=== PATIENT | male | born 1975 | race African-American/Black ===

== ENCOUNTER 2016-05-17 03:59 | Emergency (ER) | payer MEDICAID ==
[~2016-05-17] VITALS: Ht 182.9 cm; Wt 90.7 kg
[~2016-05-17 03:59] MED LIST: AUGMENTIN 875-1 EAC1 ORAL; OFLOXACIN5 ML LEFT EYE
[2016-05-17] MEDS ORDERED: NKM (04:04)
[2016-05-17 04:09] VITALS: BP 114/79
[2016-05-17] MEDS ORDERED: DuoNeb 0.5-3(2.5)mg/3ml neb HHN ONE (04:15)
--- NOTE | 2016-05-17 04:16 | Emergency Room Report ---
History of Present Illness General Chief Complaint: Upper Respiratory Illness Source: Patient Present Illness HPI Patient is a 42-year-old male presented after increased cough and difficulty breathing. Patient reported having prior history of cough for 1 months. He reported taking [id number] medications without relief. He states that he had prior history of smoking. He denied any vomiting or diarrhea. He reports having sick contacts at home. Allergies: Coded Allergies: No Known Allergies (Unverified , 08/16/14) Patient History Past Medical History: see triage record Reviewed Nursing Documentation: PMH: Agreed, PSxH: Agreed Nursing Documentation-PMH Past Medical History: No Stated History Review of Systems All Other Systems: negative except mentioned in HPI Physical Exam Vital Signs Date Time Temp Pulse Resp B/P Pulse Ox O2 Delivery O2 Flow Rate FiO2 05/17/16 04:00 98.2 60 16 114/79 96 Room Air General Appearance: well appearing, no apparent distress, alert, GCS 15 Head: normocephalic, atraumatic ENT: hearing grossly normal, normal voice Neck: full range of motion, supple Respiratory: no respiratory distress, speaking full sentences, wheezing Cardiovascular #1: normal peripheral pulses, regular rate, rhythm Gastrointestinal: normal bowel sounds, non tender, no mass Musculoskeletal: normal inspection, digits/nails normal, no calf tenderness Neurologic: normal inspection, alert, oriented x3, responsive, normal gait Psychiatric: mood/affect normal Skin: no rash Medical Decision Making Diagnostic Impression: Primary Impression: Bronchitis ER Course Patient presented for cough.Differential diagnosis included but was not limited to bronchitis, pneumonia, pulmonary embolism, pericarditis, asthma, foreign body. Patient's benign exam and does not appear to require any further imaging or laboratory testing at this time. The patient was given a breathing treatment with albuterol and Atrovent. The patient is advised to follow up with primary care doctor in 1-2 days. Patient is advised to return if any worsening condition or if any changes in status that are concerning. Last Vital Signs Date Time Temp Pulse Resp B/P Pulse Ox O2 Delivery O2 Flow Rate FiO2 05/17/16 04:09 60 16 Room Air 05/17/16 04:09 98.2 114/79 96 Status: improved Disposition: HOME, SELF-CARE Condition: Stable Scripts Albuterol Sulfate* (ALBUTEROL SULFATE MDI*) 8.5 Gm Hfa.aer.ad 2 PUFF INH Q4H Y for cough/wheezing, #1 EA 0 Refills Prov: Warner Delgado 05/17/16 Warner Delgado May 17, 2016 04:16
[2016-05-17] MEDS ORDERED: ALBUTEROL SULF8.5 GM INH (04:25)
[2016-05-17 04:34] VITALS: BP 114/79
== END 2016-05-17 04:34 | disposition home or self-care (01) ==
LOC: EDBD 03:59 → EMR 04:27
DX: J40 Bronchitis, not specified as acute or chronic (principal)
CPT/HCPCS: 94640; 94664; 99283; J7620

== ENCOUNTER 2016-08-31 12:29 | Emergency (ER) | payer MEDICAID ==
[~2016-08-31] VITALS: Ht 182.9 cm; Wt 90.7 kg
[~2016-08-31 12:29] MED LIST changes: +ALBUTEROL SULF8.5 GM INH; +NKM
[2016-08-31 13:19] LABS: APPEARANCE,URINE CLEAR; KETONES,URINE 1+ (NEGATIVE); LEUKOCYTE ESTERASE ,URINE 2+ (NEGATIVE); NITRITE,URINE NEGATIVE (NEGATIVE); PH,URINE 6 (4.5-8.0); PROTEIN,URINE NEGATIVE (NEGATIVE); UROBILINOGEN,URINE 4 MG/DL (0.0-1.0)
[2016-08-31 13:25] VITALS: BP 108/55
--- NOTE | 2016-08-31 13:27 | Emergency Room Report ---
History of Present Illness General Chief Complaint: General Complaint Source: Patient Present Illness HPI 30-year-old male presents to the emergency department complaining of dull ache in the right testicle x2 weeks 8/10 in severity described as dull/ache with increased frequency 2 episodes of dysuria, and intermittent fevers and chills. Patient reports that when he lays a certain way the testicular pain is mildly relieved to 2/10 in severity, however standing makes his pain worse. He denies swelling, erythema or trauma to the testicles. Denies palpable tender lymph nodes. He states he has had one sexual partner and he is been in a monogamous relationship for many years patient denies penile discharge or lesions. Patient denies rashes abdominal pain or joint pain. Denies CP, Palpitations, LOC, AMS, dizziness, Changes in Vision, Sensation, paresthesias, or a sudden severe headache. Allergies: Coded Allergies: No Known Allergies (Unverified , 08/16/14) Patient History Past Medical History: see triage record Past Surgical History: none Pertinent Family History: none Immunizations: UTD Reviewed Nursing Documentation: PMH: Agreed, PSxH: Agreed Nursing Documentation-PMH Past Medical History: No Stated History Review of Systems All Other Systems: negative except mentioned in HPI Physical Exam Vital Signs Date Time Temp Pulse Resp B/P Pulse Ox O2 Delivery O2 Flow Rate FiO2 08/31/16 12:35 98.1 50 14 110/54 98 Room Air Sp02 EP Interpretation: reviewed, normal General Appearance: no apparent distress, alert, GCS 15, non-toxic Head: normocephalic, atraumatic Eyes: bilateral eye PERRL, bilateral eye normal inspection ENT: hearing grossly normal, normal pharynx, no angioedema, normal voice Neck: full range of motion, supple/symm/no masses Respiratory: chest non-tender, lungs clear, normal breath sounds, speaking full sentences Cardiovascular #1: regular rate, rhythm, no edema Gastrointestinal: normal bowel sounds, non tender, soft, no guarding, no rebound Rectal: deferred Genitourinary: normal inspection, no CVA tenderness, penis normal, other - Cremasterics reflex is intact bilaterally, as the phren's sign of the right testicle- pain relief upon elevation. No palpable lymph nodes no lesions no obvious swelling or erythema. no palpable masses. Musculoskeletal: back normal, gait/station normal, normal range of motion, non- tender Neurologic: alert, oriented x3, responsive, motor strength/tone normal, sensory intact, speech normal Psychiatric: judgement/insight normal, memory normal, mood/affect normal Skin: normal color, no rash, warm/dry, well hydrated Lymphatic: no adenopathy Medical Decision Making PA Attestation Dr. Walker is my supervising Physician whom patient management has been discussed with. Diagnostic Impression: Primary Impression: Epididymitis Additional Impression: UTI (urinary tract infection) Qualified Codes: N30.01 - Acute cystitis with hematuria ER Course Pt. presents to the ED c/o testicular pain x 2 weeks constant and dull in nature , with frequency and dysuria, denies swelling and erythema. Patient denies any discharge. Ddx considered but are not limited to testicular torsion, epididymitis, orchitis , abscess, hernia Vital signs: are WNL, pt. is afebrile H&PE are most consistent epididymitis cremasterics reflex is present and phren sign is positive there is relief upon elevation ORDERS: - UA: few bacteria, elevated WBC's and elevated leukocytes ED INTERVENTIONS: -250mg Rocephin IM DISCHARGE: At this time pt. is stable for d/c to home. Will provide printed patient care instructions, and any necessary prescriptions. Care plan and follow up instructions have been discussed with the patient prior to discharge. Labs Test 08/31/16 13:02 Urine Color Yellow Urine Appearance Clear Urine pH 6 (4.5-8.0) Urine Specific [place] 1.020 (1.005-1.035) Urine Protein Negative (NEGATIVE) Urine Glucose (UA) Negative (NEGATIVE) Urine Ketones 1+ (NEGATIVE) Urine Occult Blood Negative (NEGATIVE) Urine Nitrite Negative (NEGATIVE) Urine Bilirubin Negative (NEGATIVE) Urine Urobilinogen 4 MG/DL (0.0-1.0) Urine Leukocyte Esterase 2+ (NEGATIVE) Urine RBC 0-2 /HPF (0 - 0) Urine WBC 20-30 /HPF (0 - 0) Urine Squamous Epithelial Cells Occasional /LPF Urine Bacteria Few /HPF (NONE) Last Vital Signs Date Time Temp Pulse Resp B/P Pulse Ox O2 Delivery O2 Flow Rate FiO2 08/31/16 12:35 98.1 50 14 110/54 98 Room Air Disposition: HOME, SELF-CARE Condition: Stable Scripts Phenazopyridine Hcl* (PYRIDIUM*) 100 Mg Tablet 100 MG ORAL THREE TIMES A DAY, #14 TAB Prov: Marcy Ordonez 08/31/16 Doxycycline Hyclate* (VIBRAMYCIN*) 100 Mg Capsule 100 MG ORAL EVERY 12 HOURS for 7 Days, #14 CAP 0 Refills Prov: Marcy Ordonez 08/31/16 Patient Instructions: Epididymitis, Urinary Tract Infection, [id number] Additional Instructions: Take medications as directed. Follow up with PCP in 3-5 days Return sooner to ED if new symptoms occur, or current symptoms become worse. Pyridium will cause your urine to change color (Red/[place]), this is a normal side effect of the medication. - Please note that this Emergency Department Report was dictated using [employer] advisory teacher technology software, occasionally this can lead to erroneous entry secondary to interpretation by the dictation equipment. Marcy Ordonez August 31, 2016 13:27
[2016-08-31 13:31] LABS: BACTERIA,URINE FEW /HPF; RBC,URINE 0-2 /HPF (0 - 0); SQUAMOUS EPITHELIAL CELL,UR OCCASIONAL /LPF (NONE/OCC); WBC,URINE 20-30 /HPF (0 - 0)
[2016-08-31] MEDS ORDERED: PHENAZOPYRIDIN100 MG ORAL (13:38)
[2016-08-31] MEDS ORDERED: VIBRAMYCIN100 MG ORAL (13:38)
[2016-08-31 13:54] VITALS: BP 114/74
[2016-09-01] MEDS ORDERED: PHENAZOPYRIDIN200 MG ORAL (11:23)
[2016-09-01] MEDS ORDERED: VIBRAMYCIN100 MG ORAL (11:23)
== END 2016-08-31 13:56 | disposition home or self-care (01) ==
LOC: EMR 12:50
DX: N45.1 Epididymitis (principal); N30.01 Acute cystitis with hematuria
CPT/HCPCS: 81003; 87086; 99284

== ENCOUNTER 2016-12-09 08:57 | Emergency (ER) | payer MEDICAID, OTHER ==
[~2016-12-09] VITALS: Ht 182.9 cm; Wt 90.7 kg
[~2016-12-09 08:57] MED LIST changes: +PHENAZOPYRIDIN100 MG ORAL; +PHENAZOPYRIDIN200 MG ORAL; +VIBRAMYCIN100 MG ORAL
[2016-12-09 09:05] VITALS: BP 114/63
[2016-12-09] MEDS ORDERED: Acetaminophen 500mg (ES) tab ORAL ONE (09:15)
--- NOTE | 2016-12-09 09:17 | Emergency Room Report ---
History of Present Illness General Chief Complaint: Upper Extremity Injury Source: Patient Present Illness HPI 41-year-old male with no past medical history presenting with left hand pain x 2 days. Patient states that on Thursday a few boxes up with cans fell onto his left hand. Patient now complains of left hand pain near his thumb. States that he has been able to still use his hand and move his hand. Denies any head trauma or LOC. Denies any fever or chills. Denies any numbness or tingling to the hand. Allergies: Coded Allergies: No Known Allergies (Unverified , 08/16/14) Patient History Past Medical History: none Nursing Documentation-[facility] Past Medical History: No Stated History Review of Systems Musculoskeletal: Reports: joint pain All Other Systems: negative except mentioned in HPI Physical Exam Vital Signs Date Time Temp Pulse Resp B/P Pulse Ox O2 Delivery O2 Flow Rate FiO2 12/09/16 09:00 97.9 46 16 114/63 99 Room Air Sp02 EP Interpretation: normal General Appearance: normal inspection, well appearing, no apparent distress, alert, GCS 15, non-toxic Head: normocephalic, atraumatic Eyes: bilateral eye EOMI, bilateral eye PERRL, bilateral eye normal inspection ENT: normal ENT inspection, normal pharynx, normal voice, moist mucus membranes Neck: normal inspection, full range of motion, supple, no bony tend Respiratory: normal inspection, lungs clear, normal breath sounds, no respiratory distress, no retraction, no wheezing, speaking full sentences, chest symmetrical Cardiovascular #1: normal inspection, regular rate, rhythm, no edema, normal capillary refill Gastrointestinal: normal inspection, non tender, soft, non-distended, no guarding Musculoskeletal: normal inspection, back normal, other - Left hand with no gross bony deformities. Limited range of motion of thumb opposing fifth digit. No warmth no swelling. Positive scaphoid tenderness left hand. Full range of motion of the wrist and elbow. No forearm tenderness. Neurologic: normal inspection, alert, oriented x3, responsive, motor strength/ tone normal, sensory intact, normal gait, speech normal Medical Decision Making Diagnostic Impression: Primary Impression: Left hand pain ER Course 41 yo M with L hand pain x 2 days DDX: scaphoid fx / contusion / disloc Plan: XR, pain control ER course: XR:No gross fractures or dislocations. Cannot visualize scaphoid fracture. No significant soft tissue swelling. Disposition: Pt is to be discharged home. Patient was placed in a thumb spica splint. Patient was instructed to limit the use of extremity. Patient was instructed to see an orthopedic surgeon within 3 days for possibility of scaphoid fracture. Patient was informed of possibility of chronic pain or significant disability if he does not follow up with orthopedic surgeon. The patient for understanding and agrees with plan. Last Vital Signs Date Time Temp Pulse Resp B/P Pulse Ox O2 Delivery O2 Flow Rate FiO2 12/09/16 09:05 97.9 16 114/63 99 Room Air 12/09/16 09:00 46 Disposition: HOME, SELF-CARE Condition: Stable Patient Instructions: Wrist Pain, [id number] Additional Instructions: Please remain in splint until you see an orthopedic surgeon. Please see an orthopedic surgeon within 3 days. You may need an MRI or further imaging to rule out another fracture called a scaphoid fracture. Zaida Zelaya M.D. Dec 09, 2016 09:17
[2016-12-09 10:30] VITALS: BP 128/70
--- NOTE | 2016-12-09 15:53 | Diagnostic Imaging Report ---
Indication: PAIN Technique: 3 views left hand Comparison: none Findings: No acute fractures. No dislocations. The joint spaces are preserved Impression: No acute process
== END 2016-12-09 10:30 | disposition home or self-care (01) ==
LOC: EMR 09:30
DX: M25.542 Pain in joints of left hand (principal)
CPT/HCPCS: 29260; 99283

== ENCOUNTER 2019-12-07 00:35 | Emergency (ER) | payer MEDICAID, OTHER ==
[~2019-12-07] VITALS: Ht 182.9 cm; Wt 74.8 kg
--- NOTE | 2019-12-07 01:00 | NUR ---
ED Nurse Note: Pt ambualted to ED from home c/o sore throat and dry cough for several days as well as feeling chills. Pt has not been tested for COvid, VSS, ERMD at bedside
--- NOTE | 2019-12-07 01:05 | Emergency Room Report ---
History of Present Illness General Chief Complaint: Sore Throat Source: Patient Present Illness HPI This a 44-year-old male with no past medical history. He presents with complaint of fever and sore throat. Onset tonight. Slight body ache. Fever is subjective. He said he felt warm. Also slight sore throat. He said he has a "smoker's cough". Coughing is nonproductive in nature. No nausea no vomiting. Worse with swallowing. Denies any other complaint. No sick contact. Allergies: Coded Allergies: No Known Allergies (Unverified , 08/16/14) COVID-19 Screening Contact w/high risk pt: No Experienced COVID-19 symptoms?: Yes COVID-19 Testing performed PLATE MAKER: No Patient History Past Medical History: see triage record, old chart reviewed Past Surgical History: none Pertinent Family History: none Social History: Denies: smoking Immunizations: other Reviewed Nursing Documentation: PMH: Agreed; PSxH: Agreed Nursing Documentation-PMH Past Medical History: No Stated History Review of Systems Constitutional: Reports: fever Eye: Denies: eye pain, blurred vision ENT: Reports: throat pain Respiratory: Denies: cough, shortness of breath Cardiovascular: Denies: chest pain, palpitations Gastrointestinal: Denies: abdominal pain, diarrhea, nausea, vomiting Musculoskeletal: Denies: back pain, joint pain Skin: Denies: rash Neurological: Denies: headache, numbness Endocrine: Denies: increased thirst, increased urine Hematologic/Lymphatic: Denies: easy bruising All Other Systems: negative except mentioned in HPI Physical Exam Vital Signs Date Time Temp Pulse Resp B/P (MAP) Pulse Ox O2 Delivery O2 Flow Rate FiO2 12/07/19 00:39 99.0 62 16 136/73 (94) 95 Room Air Vitals with low-grade fever Sp02 EP Interpretation: reviewed, normal General Appearance: well appearing, no apparent distress, alert Head: normocephalic, atraumatic Eyes: bilateral eye PERRL, bilateral eye EOMI ENT: hearing grossly normal, pharyngeal erythema - Mild Neck: full range of motion, supple, no meningismus Respiratory: chest non-tender, lungs clear, normal breath sounds Cardiovascular #1: regular rate, rhythm, no murmur Gastrointestinal: normal bowel sounds, non tender, no mass, no organomegaly, no bruit, non-distended Musculoskeletal: back normal, normal range of motion, gait/station normal Psychiatric: mood/affect normal Medical Decision Making Diagnostic Impression: Primary Impression: Sore throat ER Course This patient was evaluated in the context of the global COVID-19 pandemic, which necessitated consideration that the patient might be at risk for infection with the [id number] virus that causes COVID-19. Institutional protocols and algorithms that pertain to the evaluation of patients at risk for COVID-19 and the state of rapid change based on information released by multiple regulatory bodies including the CDC and federal and state organizations. These policies and algorithms were followed during the patient' s care in the ED. Patient presents with sore throat and low-grade fever. This may be COVID. Could also be other viral infection. Looks well. Patient does not want to stay for results of his rapid cover test. He said he will call back. Last Vital Signs Date Time Temp Pulse Resp B/P (MAP) Pulse Ox O2 Delivery O2 Flow Rate FiO2 12/07/19 00:39 99.0 62 16 136/73 (94) 95 Room Air Status: improved Disposition: HOME, SELF-CARE Condition: Stable Scripts Azithromycin* (ZITHROMAX*) 250 Mg Tablet 250 MG ORAL DAILY, #6 TAB 0 Refills Take two tables once daily for 1 day, then one tablet once daily for 4 days. Prov: Delonte Gamez MD 12/07/19 Ibuprofen* (MOTRIN*) 600 Mg Tablet 600 MG ORAL Q6H PRN for For Pain, #30 TAB 0 Refills Prov: Delonte Gamez MD 12/07/19 Patient Instructions: Sore Throat Delonte Gamez MD Dec 07, 2019 01:05
[2019-12-07 01:18] VITALS: BP 132/70
[2019-12-07] MEDS ORDERED: IBUPROFEN600 M1 ORAL (01:18)
[2019-12-07] MEDS ORDERED: ZITHROMAX250 MG ORAL (01:18)
--- NOTE | 2019-12-07 01:18 | NUR ---
ER DISCHARGE NOTE: Patient is cleared to be discharged per ERMD, pt is aox4, on room air, with stable vital signs. pt was given dc and prescription instructions, pt was able to verbalize understanding, pt id band removed. pt is able to ambulate with steady gait. pt took all belongings.
== END 2019-12-07 01:18 | disposition home or self-care (01) ==
LOC: EMR 01:11
DX: R07.0 Pain in throat (principal); R50.9 Fever, unspecified; R05 Cough
CPT/HCPCS: U0002; Z7502; 99282

== ENCOUNTER 2020-05-01 12:06 | Emergency (ER) | payer MEDICAID ==
[~2020-05-01] VITALS: Ht 182.9 cm; Wt 77.1 kg
[~2020-05-01 12:06] MED LIST changes: +IBUPROFEN600 M1 ORAL; +ZITHROMAX250 MG ORAL
[2020-05-01] MEDS ORDERED: Lidocaine 1% MPF 10mg/ml 5ml INJ ONE (13:15)
[2020-05-01] MEDS ORDERED: cefTRIAXone 500mg Inj IM ONE (13:15)
--- NOTE | 2020-05-01 13:21 | Emergency Room Report ---
History of Present Illness General Chief Complaint: Male Urogenital Problems Source: Patient Present Illness HPI 44-year-old male with no significant past medical history here complaining of 2 days of urinary frequency and urgency as well as minimally painful small mass right scrotum. Reports that he sexually same partner. Denies any penile discharge. Denies any generalized scrotal swelling and tenderness. Denies fever and chills, hematuria, suprapubic pain, flank pain. Has not taken medication for symptom relief. Allergies: Coded Allergies: No Known Allergies (Unverified , 08/16/14) COVID-19 Screening Contact w/high risk pt: No Experienced COVID-19 symptoms?: No COVID-19 Testing performed CERTIFICATION OFFICER: Yes - 2 months ago COVID-19 Screening: Negative COVID-19 COVID-19 Testing Source: [facility] Patient History Past Medical History: see triage record Past Surgical History: none Pertinent Family History: none Immunizations: UTD Reviewed Nursing Documentation: PMH: Agreed; PSxH: Agreed Nursing Documentation-PMH Past Medical History: No Stated History Review of Systems All Other Systems: negative except mentioned in HPI Physical Exam Vital Signs Date Time Temp Pulse Resp B/P (MAP) Pulse Ox O2 Delivery O2 Flow Rate FiO2 05/01/20 12:24 98.2 52 14 114/68 (83) 96 Room Air Sp02 EP Interpretation: reviewed, normal General Appearance: no apparent distress, alert, GCS 15, non-toxic Head: normocephalic, atraumatic Eyes: bilateral eye normal inspection, bilateral eye PERRL ENT: hearing grossly normal Neck: full range of motion, supple/symm/no masses Respiratory: no respiratory distress, no retraction, no accessory muscle use Cardiovascular #1: regular rate, rhythm Gastrointestinal: non tender, soft, no mass, no organomegaly, no peritonitis, no bruit Rectal: deferred Genitourinary: no CVA tenderness, other - Small mobile mass right scrotum around the perineum without any pus drainage, not tender or warm to touch Neurologic: alert, motor strength/tone normal, oriented x3, sensory intact, responsive, speech normal Psychiatric: judgement/insight normal, memory normal, mood/affect normal, no suicidal/homicidal ideation Skin: no rash Lymphatic: no adenopathy Medical Decision Making PA Attestation All my diagnosis and treatment plans were reviewed ad discussed with my supervising physician Dr. Strickland Diagnostic Impression: Primary Impression: Scrotal abscess Additional Impression: UTI (urinary tract infection) ER Course 44-year-old male with no significant past medical history here complaining of 2 days of urinary frequency and urgency as well as minimally painful small mass right scrotum. Reports that he sexually same partner. Denies any penile discharge. Denies any generalized scrotal swelling and tenderness. Denies fever and chills, hematuria, suprapubic pain, flank pain. Has not taken medication for symptom relief. Ddx considered but are not limited to : Abscess, epididymitis, cellulitis, torsion, varicocele, UTI Vital signs: are WNL, pt. is afebrile H&PE are most consistent with: UTI, scrotal abscess ORDERS: Doxycycline, UA ED INTERVENTIONS: Rocephin IM DISCHARGE: At this time pt. is stable for d/c to home. Will provide printed patient care instructions, and any necessary prescriptions. Care plan and follow up instructions have been discussed with the patient prior to discharge. At this time patient is not having pain to the area patient to follow-up with urologist, take medication as directed and can be secondary to physical transmitted diseases. Patient agrees with the treatment. If worsening symptoms return to the emergency room. CT/MRI/US Diagnostic Results CT/MRI/US Diagnostic Results : Imaging Test Ordered: Scrotal ultrasound Impression Small perineal abscess Last Vital Signs Date Time Temp Pulse Resp B/P (MAP) Pulse Ox O2 Delivery O2 Flow Rate FiO2 05/01/20 12:24 98.2 52 14 114/68 (83) 96 Room Air Disposition: HOME, SELF-CARE Condition: Stable Scripts Doxycycline Hyclate (DOXYCYCLINE HYCLATE) 100 Mg Tablet 100 MG PO BID for 10 Days, #20 TAB Prov: Lasha Woodson 05/01/20 Patient Instructions: Abscess, [id number], Urinary Tract Infection Additional Instructions: Take medication as directed, follow with your primary care provider, worsening symptoms return to the emergency room Lasha Woodson May 01, 2020 13:21
[2020-05-01] MEDS ORDERED: DOXYCYCLINE HY100 M6 PO (13:23)
[2020-05-01 13:31] VITALS: BP 114/68
[2020-05-01 13:33] LABS: APPEARANCE,URINE SLIGHTLY CLOUDY; BILIRUBIN, URINE NEGATIVE (NEGATIVE); GLUCOSE, URINE (UA) NEGATIVE (NEGATIVE); KETONES,URINE NEGATIVE (NEGATIVE); LEUKOCYTE ESTERASE ,URINE 1+ (NEGATIVE); NITRITE,URINE NEGATIVE (NEGATIVE); PH,URINE 7 (4.5-8.0); PROTEIN,URINE NEGATIVE (NEGATIVE); UROBILINOGEN,URINE 1 MG/DL (0.0-1.0)
--- NOTE | 2020-05-01 13:33 | NUR ---
ED Nurse Note:scrotal U/S was done
[2020-05-01 13:35] LABS: COLOR,URINE PALE YELLOW
[2020-05-01 13:38] VITALS: BP 114/68
--- NOTE | 2020-05-01 13:40 | NUR ---
ED Nurse Note: Pt cleared by health care Provider for discharge. DC instructions/prescription was given and explained to pt and verbalized understanding of teachings. All medical deviecs such as ID band removed. Pt is AAO x4, ambulatory and left with all personal belongings.
--- NOTE | 2020-05-01 18:50 | Diagnostic Imaging Report ---
Indications: Scrotal pain Technique: Grayscale and duplex images of the scrotum Comparison: none Findings:The right testicle measures 5.1cm in length. It demonstrates normal echogenicity. Normal Doppler flow. Normal epididymis. There is a small hydrocele The left testicle measures 2 cm in length. It is heterogeneously hypoechoic and demonstrates decreased blood flow although some flow is present . A 7 mm cyst is seen within or adjacent to the epididymal head. Within the perineum, there is a mixed hypoechoic/anechoic 1.8 cm diameter structure which demonstrates peripheral hypervascularity. Impression: 1.8 cm hypervascular central anechoic structure in the perineum, likely a small abscess Normal right testicle Atrophic hypoechoic left testicle. Possibly represents chronic torsion, among other possibility. Correlate with clinical history
== END 2020-05-01 13:35 | disposition home or self-care (01) ==
LOC: EMR 12:58
DX: N49.2 Inflammatory disorders of scrotum (principal); N39.0 Urinary tract infection, site not specified
CPT/HCPCS: 76870; 81003; 96372; J0696; Z7502; 99284

== ENCOUNTER 2020-06-03 01:11 | Emergency (ER) | payer MEDICAID ==
[~2020-06-03] VITALS: Ht 185.4 cm; Wt 77.1 kg
[~2020-06-03 01:11] MED LIST changes: +DOXYCYCLINE HY100 M6 PO
--- NOTE | 2020-06-03 01:22 | NUR ---
ED Nurse Note: pt comes into ED c/o frequent urination. states he was seen weeks ago for the same issue and was given antibiotics. states he took the whole course of abx as prescribed but thinks it hasnt resolved. pt is a&ox3, ambulates without assistance, vs wnl, breathing without difficulty and is resting comfortably on stretcher. urine sent to lab. will continue to monitor
[2020-06-03 01:34] VITALS: BP 126/73
--- NOTE | 2020-06-03 01:34 | Emergency Room Report ---
History of Present Illness General Chief Complaint: Male Urogenital Problems Source: Patient Present Illness HPI 44-year-old male with no significant past medical history. He presents with complaint of urinary frequency and dysuria. Onset for last few days. No fever chills but no nausea no vomiting. He was here couple weeks ago for swelling to the scrotal area. Ultrasound showed potential small abscess. He was given antibiotics. He said the redness and swelling is gone. Now there is small hardness in that area. He does not feel this is the same problem. Nothing made it better. Nothing made it worse. He is sexually active with one partner. Has unprotected sex. 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 COVID-19 Screening: Negative COVID-19 COVID-19 Testing Source: unknown Patient History Past Medical History: see triage record, old chart reviewed Past Surgical History: none Pertinent Family History: none Social History: Reports: smoking Immunizations: other Reviewed Nursing Documentation: PMH: Agreed; PSxH: Agreed Nursing Documentation-PMH Past Medical History: No Stated History Review of Systems Eye: Denies: eye pain, blurred vision ENT: Denies: ear pain, nose congestion, throat swelling Respiratory: Denies: cough, shortness of breath Cardiovascular: Denies: chest pain, palpitations Gastrointestinal: Denies: abdominal pain, diarrhea, nausea, vomiting Genitourinary: Reports: dysuria, frequency Musculoskeletal: Denies: back pain, joint pain Skin: Denies: rash Neurological: Denies: headache, numbness Endocrine: Denies: increased thirst, increased urine Hematologic/Lymphatic: Denies: easy bruising All Other Systems: negative except mentioned in HPI Physical Exam Vital Signs Date Time Temp Pulse Resp B/P (MAP) Pulse Ox O2 Delivery O2 Flow Rate FiO2 06/03/20 01:13 98.4 56 18 126/73 (90) 100 Room Air Vitals normal Sp02 EP Interpretation: reviewed, normal General Appearance: well appearing, no apparent distress, alert Head: normocephalic, atraumatic Eyes: bilateral eye PERRL, bilateral eye EOMI ENT: hearing grossly normal, normal pharynx Neck: full range of motion, supple, no meningismus Respiratory: chest non-tender, lungs clear, normal breath sounds Cardiovascular #1: regular rate, rhythm, no murmur Gastrointestinal: normal bowel sounds, non tender, no mass, no organomegaly, no bruit, non-distended Musculoskeletal: back normal, normal range of motion, gait/station normal Psychiatric: mood/affect normal Medical Decision Making Diagnostic Impression: Primary Impression: Dysuria ER Course Patient presents with dysuria. No obvious UTI. He does have bacteria in his urine. This may be an STD/urethritis. We will go ahead and put him on antibiotics. No evidence of diabetes. Last Vital Signs Date Time Temp Pulse Resp B/P (MAP) Pulse Ox O2 Delivery O2 Flow Rate FiO2 06/03/20 01:13 98.4 56 18 126/73 (90) 100 Room Air Status: unchanged Disposition: HOME, SELF-CARE Condition: Stable Scripts Doxycycline Monohydrate* (DOXYCYCLINE MONOHYDRATE*) 100 Mg Capsule 100 MG ORAL Q12H, #14 CAP 0 Refills Prov: Delonte Gamez MD 06/03/20 Patient Instructions: Urinary Tract Infection Additional Instructions: Follow-up with your doctor in 7 days. Return if symptoms worsen. Delonte Gamez MD Jun 03, 2020 01:34
[2020-06-03 01:38] LABS: APPEARANCE,URINE CLEAR; BILIRUBIN, URINE NEGATIVE (NEGATIVE); COLOR,URINE PALE YELLOW; GLUCOSE, URINE (UA) NEGATIVE (NEGATIVE); KETONES,URINE NEGATIVE (NEGATIVE); LEUKOCYTE ESTERASE ,URINE 1+ (NEGATIVE); NITRITE,URINE NEGATIVE (NEGATIVE); PH,URINE 6.5 (4.5-8.0); PROTEIN,URINE NEGATIVE (NEGATIVE); UROBILINOGEN,URINE NORMAL MG/DL (0.0-1.0)
[2020-06-03 02:16] VITALS: BP 121/75
[2020-06-03] MEDS ORDERED: DOXYCYCLINE MO100 MG ORAL (02:16)
--- NOTE | 2020-06-03 02:17 | NUR ---
ER DISCHARGE NOTE: Patient is cleared to be discharged per ERMD, pt is aox4, on room air, with stable vital signs. pt was given dc and prescription instructions, pt was able to verbalize understanding, pt id band removed without complications. pt is able to ambulate with steady gait. pt took all belongings.
== END 2020-06-03 02:22 | disposition home or self-care (01) ==
LOC: EMR 01:32
DX: R30.0 Dysuria (principal)
CPT/HCPCS: 81003; Z7502; 99283